=== PATIENT | male | born 2000 | race Caucasian/White ===

== ENCOUNTER → 2018-08-26 | Outpatient (CLI) | payer BC ==
--- NOTE | 2018-08-26 12:30 | XR ---
EXAMINATION TYPE: XR foot complete RT DATE OF EXAM: 08/26/2018 CLINICAL HISTORY: pain TECHNIQUE: Frontal, lateral and oblique images of the right foot are obtained. COMPARISON: None. FINDINGS: There is no acute fracture/dislocation evident. The joint spaces appear within normal gutierrez its. The overlying soft tissue appears unremarkable. IMPRESSION: There is no acute fracture or dislocation. ICD 10 NO FRACTURE, INITIAL EVALUATION
== END ==
LOC: RADXRYALE 11:57
PROVIDERS: ATTEND Internal Medicine
DX: S90.31XA Contusion of right foot, initial encounter (principal)

== ENCOUNTER → 2020-02-01 | Outpatient (CLI) | payer BC ==
--- NOTE | 2020-02-01 12:28 | CT ---
EXAMINATION TYPE: CT abdomen pelvis w con DATE OF EXAM: 02/01/2020 COMPARISON: NONE HISTORY: 20-year-old male RLQ pain TECHNIQUE: Contiguous axial scanning of the abdomen and pelvis following administration of 100 ml Iso hola 300 IV contrast. Delayed images through the kidneys and coronal/sagittal reconstructions perform ed. CT DLP: 896 mGycm Automated exposure control for dose reduction was used. FINDINGS: LUNG BASES: No significant abnormality is appreciated. LIVER/GB: Liver mildly enlarged at 18.1 cm. No focal liver lesion or biliary ductal dilatation. Samy l venous system is patent. Gallbladder within normal limits. PANCREAS: No significant abnormality is seen. SPLEEN: No significant abnormality is seen. ADRENALS: No significant abnormality is seen. KIDNEYS: No significant abnormality is seen. However, the distal third ureters are patulous, more so on the left distended up to 1.9 cm. However, there is symmetric uptake and excretion of contrast from the kidneys and no hydronephrosis seen. LYMPH NODES: A couple mildly enlarged right-sided mesenteric lymph nodes measuring up to 1.3 cm, tonie nal image 35. BOWEL: There seems to be a mildly thickened appendix in the right lower quadrant, lateral to the cecu m, axial image 50 and coronal image 37. Minimal surrounding fat stranding, coronal image 40 may repre sent some adjacent vessels rather than inflammation. Some foci of air and contrast is present within the proximal to midportion of the appendix. PELVIS: Mild circumferential bladder wall thickening. No abnormal fluid collection in the pelvis or pelvic lymphadenopathy. BONES: No osseous destructive process. IMPRESSION: 1. The proximal portion of the appendix containing some air and contrast. The mid to distal portion i s mildly thickened. Minimal surrounding fat stranding could represent adjacent vessels rather than in flammation. Exam equivocal for early tip appendicitis at this time. Close clinical follow-up recommen ded if patient's symptoms persist. 2. A couple mildly enlarged right lower quadrant mesenteric lymph nodes measuring up to 1.3 cm, proba tanisha reactive. Mild mesenteric adenitis is possible. 3. Patulous distal third ureters more so on the left. The left-sided ureter is distended up to 1.9 cm . No evidence for obstructive uropathy. A chronic etiology is favored, possible variation of megauret er or sequela of chronic vesicoureteral reflux. Consider nonemergent urology referral. 4. Mild circumferential bladder wall thickening; correlate to exclude cystitis.
== END | disposition home or self-care (01) ==
LOC: RADCTMAIN 09:38
PROVIDERS: ATTEND Family Medicine
DX: R59.0 Localized enlarged lymph nodes (principal); K37 Unspecified appendicitis; N32.9 Bladder disorder, unspecified
CPT/HCPCS: 74177; Q9967

== ENCOUNTER 2020-02-03 09:05 | Day surgery (SDC) | payer BC ==
[2020-02-02 12:03] VITALS: BMI 22.5
[~2020-02-03 09:05] MED LIST: DEXAMETHASONE SOD PHOSPHATE 10 MG/ML 1 ML VIAL IV ONE; HYDROmorphone 0.5 MG/0.5 ML SYRINGE IVP PRN; LACTATED RINGERS 1,000 ML IV SCH; MIDAZOLAM 2 MG/2 ML VIAL IV PRN; ONDANSETRON 4 MG/2 ML VIAL IVP ONE; SCOPOLAMINE 1.5MG/72HR PATCH TRANSDERM ONE; metroNIDAZOLE-NS PMX 500 MG in SALINE 1 100ML.BAG IVPB ONE
[2020-02-03] MEDS ORDERED: LIDOCAINE 1% (10MG/ML) FOR IV START INTRADERMA ONE (09:20)
[2020-02-03] MEDS ORDERED: MIDAZOLAM 2 MG/2 ML VIAL ONE (09:29)
[2020-02-03] MEDS ORDERED: LIDOCAINE 1% INJ 10MG/ML (20 ML MDV) ONE (09:29)
[2020-02-03] MEDS ORDERED: GLYCOPYRROLATE 0.2 MG/ML 2 ML VIAL ONE (09:29)
[2020-02-03] MEDS ORDERED: PROPOFOL 10 MG/ML 20 ML VIAL IV ONE (09:29)
[2020-02-03] MEDS ORDERED: fentaNYL (PF) 50 MCG/ML 2 ML AMP ONE (09:29)
[2020-02-03] MEDS ORDERED: NEOSTIGMINE 1 MG/ML 10 ML VIAL ONE (09:29)
[2020-02-03] MEDS ORDERED: KETOROLAC 30 MG/ML 1 ML VIAL ONE (09:29)
[2020-02-03] MEDS ORDERED: ROCURONIUM BROMIDE 10 MG/ML 5 ML VIAL IV ONE (09:29)
[2020-02-03] MEDS ORDERED: SUCCINYLCHOLINE CHLORIDE 100 MG/5 ML SYR IV ONE (09:29)
--- NOTE | 2020-02-03 09:36 | P.GSHP ---
History of Present Illness H&P Date: 02/03/20 Chief Complaint: abdominal pain The patient is a 20yo male who has had complaints of intermittent right lower quadrant pain for the last couple of months. The pain got Quite severe on Thursday, so he went in to see his primary care doctor this week. A computed tomography scan of the abdomen and pelvis was done showing the appendix is being enlarged with some enlarged mesenteric lymph nodes. There is possible fat stranding near the appendix. He has not had fevers, chills, nausea or vomiting. No loss of appetite. No diarrhea or constipation. The pain will be sharp and stabbing and generally goes away in a day. It doesn't affect him working or doing regular activity. - Review of Systems All systems: negative Past Medical History Past Medical History: GERD/Reflux Additional Past Medical History / Comment(s): c/o abd pain occ for past few months History of Any Multi-Drug Resistant Organisms: None Reported Past Surgical History: No Surgical Hx Reported Past Anesthesia/Blood Transfusion Reactions: Family History of Problems w/ Anesthesia, Motion Sickness Additional Past Anesthesia/Blood Transfusion Reaction / Comment(s): Mother has PONV Smoking Status: Never smoker - Past Family History Mother Family Medical History: No Reported History Medications and Allergies Home Medications Medication Instructions Recorded Confirmed Type Naproxen Sodium [Aleve] 440 mg PO BID PRN 02/02/20 02/03/20 History Allergies Allergy/AdvReac Type Severity Reaction Status Date / Time No Known Allergies Allergy Verified 02/03/20 09:24 Surgical - Exam Osteopathic Statement: *. No significant issues noted on an osteopathic structural exam other than those noted in the History and Physical/Consult. Vital Signs Temp Pulse Resp BP Pulse Ox 98.6 F 109 H 16 141/72 97 02/03/20 09:20 02/03/20 09:20 02/03/20 09:20 02/03/20 09:20 02/03/20 09:20 - General well developed, well nourished, no distress - Eyes normal ocular movement - ENT normal mucosa - Neck trachea midline, no lymphadectomy - Respiratory normal expansion, clear to auscultation - Cardiovascular Rhythm: regular - Abdomen Abdomen: soft, non tender, bowel sounds Hernia: no umbilical Results - Imaging CT scan - abdomen: report reviewed, image reviewed Assessment and Plan (1) Chronic appendicitis Current Visit: Yes Status: Acute Code(s): K36 - OTHER APPENDICITIS SNOMED Code(s): 15953595 (2) Right lower quadrant abdominal pain Current Visit: Yes Status: Acute Code(s): R10.31 - RIGHT LOWER QUADRANT PAIN SNOMED Code(s): 966640947 Plan: The patient's symptoms are most consistent with chronic appendicitis. I recommended a laparoscopic appendectomy. The procedure, risks, complications were discussed. Questions were encouraged and answered. Usual postoperative course was discussed. Also will look for any other potential causes of the pain. Further recommendations to follow.
[2020-02-03] MEDS ORDERED: LIDOCAINE 1%-EPI 1:100,000 20 ML VIAL SQ ONE ×2 (09:52)
--- NOTE | 2020-02-03 10:19 | P.OP ---
Date of Procedure: 02/03/20 Preoperative Diagnosis: Right lower quadrant abdominal pain, chronic appendicitis Postoperative Diagnosis: Right lower quadrant pain, chronic appendicitis Procedure(s) Performed: Laparoscopic appendectomy Anesthesia: KATHIE Surgeon: Jeaneth King Estimated Blood Loss (ml): 2 Pathology: other (Appendix) Condition: stable Disposition: PACU Indications for Procedure: The patient had presented with about 2 months of intermittent right lower quadrant pain. CT showed the appendix to be dilated with possible fat stranding Description of Procedure: The patient's taken the operative suite where he is prepped and draped in the usual sterile manner under a general endotracheal anesthetic. An infraumbilical incision was made. A Veress needle was placed into the abdominal cavity and pneumoperitoneum was established with CO2 gas. Sites are chosen for accessory trochars needs are placed through small skin incisions. The abdominal and pelvic contents were examined. There may be the beginning of a very small right indirect inguinal hernia otherwise the liver, diaphragm, large and small bowel were normal where they were seen. The appendix was grasped and retracted towards the anterior abdominal wall. The mesoappendix was taken down with harmonic scissors to the base. The appendix was then ligated with 0 PDS Endoloops 2. It's transected and placed into a specimen retrieval bag. The area was reexamined and noted be hemostatic. The pneumoperitoneum was released. The trochars were removed. The specimen bag was removed. The fascia was closed with 0 Vicryl. The skin incisions were closed with 4-0 Vicryl in a subcuticular manner. Steri-Strips and dressings were applied. He tolerated the procedure without difficulty and was taken recovery room in satisfactory condition. According to or personnel, all counts WERE correct. Plan - Discharge Summary Discharge Rx Participant: No New Discharge Prescriptions: New HYDROcodone/APAP 5-325MG [[place] 5-325] 1 - 2 tab PO Q4H PRN #10 tab PRN Reason: Pain No Action Naproxen Sodium [Aleve] 440 mg PO BID PRN PRN Reason: Pain Discharge Medication List Naproxen Sodium [Aleve] 440 mg PO BID PRN 02/02/20 [History] HYDROcodone/APAP 5-325MG [[place] 5-325] 1 - 2 tab PO Q4H PRN #10 tab 02/03/20 [Rx] Follow up Appointment(s)/Referral(s): Jeaneth King DO [Doctor of Osteopathic Medicine] - 2 Weeks Activity/Diet/Wound Care/Special Instructions: No driving today or while taking pain pills. Ice to the incisions for 24-48 hours. On Thursday the dressings may be removed and you may shower. No tub baths or swimming for 1 week. Call if you develop fever, chills, nausea or vomiting, or concerns of wound infection
[2020-02-03 10:31] VITALS: TEMP 97.6
[2020-02-03 10:43] VITALS: RESP 16
[2020-02-03 12:03] VITALS: BP 118/68; PULSE 60
== END 2020-02-03 12:24 | disposition home or self-care (01) ==
LOC: OR 09:05
PROVIDERS: ATTEND Surgery
DX: K36 Other appendicitis (principal); K21.9 Gastro-esophageal reflux disease without esophagitis; F17.220 Nicotine dependence, chewing tobacco, uncomplicated
CPT/HCPCS: 88304; 44970; J2250; J1100; J2710; J0690; J2405; J2001; J3010; J1885; J0330; J2704; J1170

== ENCOUNTER → 2020-02-03 | Outpatient (CLI) | payer BC | END | disposition home or self-care (01) | LOC: LABWHC1 08:15 | PROVIDERS: ATTEND Surgery | DX: U07.1 COVID-19 (principal) ==

== ENCOUNTER → 2020-02-24 | Outpatient (CLI) | payer BC ==
[~2020-02-24] MED LIST changes: -DEXAMETHASONE SOD PHOSPHATE 10 MG/ML 1 ML VIAL IV ONE; +FUROSEMIDE 10 MG/ML 2 ML VIAL IV NR; -HYDROmorphone 0.5 MG/0.5 ML SYRINGE IVP PRN; -LACTATED RINGERS 1,000 ML IV SCH; -MIDAZOLAM 2 MG/2 ML VIAL IV PRN; -ONDANSETRON 4 MG/2 ML VIAL IVP ONE; -SCOPOLAMINE 1.5MG/72HR PATCH TRANSDERM ONE; -metroNIDAZOLE-NS PMX 500 MG in SALINE 1 100ML.BAG IVPB ONE
--- NOTE | 2020-02-24 17:40 | NM ---
EXAMINATION TYPE: NM lasix renogram DATE OF EXAM: 02/24/2020 COMPARISON: NONE HISTORY: Hydronephrosis Following administration of 9.8 mCi Tc 99m MAG3 with 20mg Lasix. Immediate images post injection FINDINGS: Excellent renal contours appear normal. Left: 57.5 %. Right: 42.5 %. Max renal flow left: 6 minutes. Max renal flow right: 42.5 minutes. Satisfactory accumulation of radiotracer within both renal collecting systems. After the administrati on of Lasix, there is prompt excretion from both collecting systems. There is some residual through t he renal pelves and ureters following Lasix administration. T 1/2 left: 13 minutes minutes. T 1/2 right: 13 minutes minutes. IMPRESSION: 1. Greater excretion on the left kidney ( 58%) compared to the right kidney (42%). 2. There is significantly slower flow within the right kidney to maximum compared to the left. Findin gs are suggestive for partial right-sided obstruction. Excretion curves are less typical for obstruc tion.
== END | disposition home or self-care (01) ==
LOC: RADNMMAIN 13:00
PROVIDERS: ATTEND Urology
DX: N13.30 Unspecified hydronephrosis (principal)
CPT/HCPCS: 78708; A9562

== ENCOUNTER 2024-10-25 16:20 | Emergency (ER) | payer OTHER ==
[2024-10-25 16:26] VITALS: RESP 18; TEMP 97.7
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
[2024-10-25 19:52] VITALS: BP 137/87; PULSE 77
== END 2024-10-25 19:52 | disposition home or self-care (01) ==
LOC: EC 16:20
DX: R07.89 Other chest pain (principal); T75.4XXA Electrocution, initial encounter; X58.XXXA Exposure to other specified factors, initial encounter
CPT/HCPCS: 99284